=== PATIENT | male | born 1970 ===

== ENCOUNTER 2019-04-06 13:14 | Outpatient (REF) | payer BC, SELFPAY ==
[2019-04-06 21:17] LABS: HCT 45.8 % (40.0-50.0); Mean Corp. HGB Concentration 34.9 g/dL (32.0-36.0); Mean Corpuscular Hemoglobin 30.1 pg (27.0-33.0); Mean Corpuscular Volume 86.3 fL (80-95); Mean Platelet Volume 11.9 fL (8.0-11.0); Platelet Count 253 x1000/uL (130-400); RBC 5.31 m/cumm (4.50-6.00); RBC Distribution Width 12.7 % (11.8-14.1)
[2019-04-06 21:28] LABS: ALT 28 U/L (16-63); AST 14 U/L (15-37); Albumin 4.2 g/dL (3.4-5.0); Alkaline Phosphatase 42 U/L (46-116); Anion Gap 9.2 mmol/L (3-11); BUN 20 mg/dL (7-18); Bilirubin, Total 0.7 mg/dL (0.2-1.0); CO2 25.8 mmol/L (21.0-32.0); CREATININE 0.96 mg/dL (0.70-1.30); Calcium 9.5 mg/dL (8.5-10.1); Calculated LDL 103 mg/dL; Chloride 106 mmol/L (98-107); Cholesterol 169 mg/dL (<200); Glucose 90 mg/dL (74-106); HDL Cholesterol 32 mg/dL (40-60); Potassium 4.6 mmol/L (3.5-5.1); Sodium 141 mmol/L (136-145); Triglyceride 173 mg/dL (<150)
[2019-04-07 10:47] LABS: TSH 2.43 uIU/mL (0.36-3.74)
== END 2019-04-06 13:34 ==
LOC: NCHCN 13:14
PROVIDERS: PCP Registered Nurse; Visit Provider Registered Nurse
DX: E78.5 Hyperlipidemia, unspecified (principal); R06.00 Dyspnea, unspecified; Z77.090 Contact with and (suspected) exposure to asbestos
CPT/HCPCS: 80053; 80061; 85027; 84443

== ENCOUNTER 2021-09-15 17:43 | Outpatient (REF) | payer BC, SELFPAY | END 2021-09-15 17:44 | disposition home or self-care (01) | LOC: NCHCN 17:43 | PROVIDERS: PCP Registered Nurse; Visit Provider Registered Nurse ==

== ENCOUNTER 2021-09-18 08:53 | Outpatient (REF) | payer BC, SELFPAY ==
[2021-09-18 16:09] LABS: Anion Gap 7.5 mmol/L (3-11); BUN 17 mg/dL (7-18); CO2 29.5 mmol/L (21.0-32.0); Calcium 10.1 mg/dL (8.5-10.1); Chloride 105 mmol/L (98-107); Glucose 93 mg/dL (74-106); Potassium 4.8 mmol/L (3.5-5.1); Sodium 142 mmol/L (136-145)
== END 2021-09-18 08:54 | disposition home or self-care (01) ==
LOC: NCHCN 08:53
PROVIDERS: PCP Registered Nurse; Visit Provider Registered Nurse
DX: R03.0 Elevated blood-pressure reading, without diagnosis of hypertension (principal)
CPT/HCPCS: 80048